=== PATIENT | female | born 1960 | race Caucasian/White ===

== ENCOUNTER 2019-04-07 13:59 | Emergency (ER) | payer MEDICAID ==
[~2019-04-07] VITALS: Ht 165.1 cm; Wt 124.7 kg
--- NOTE | 2019-04-07 14:30 | NUR ---
Dr. Baptiste at the bedside for MSE.
[2019-04-07] MEDS ORDERED: IBUPROFEN 800 MG TABLET ONE (14:39)
[2019-04-07] MEDS ORDERED: IBUPROFEN 800 MG TABLET PO ONE (14:45)
--- NOTE | 2019-04-07 16:04 | NUR ---
Patient discharged to home in stable conditon. Written and verbal after care instructions given. Patient verbalizes understanding of instructions.
== END 2019-04-07 16:05 | disposition home or self-care (01) ==
LOC: ER 13:59
DX: M54.5 Low back pain (principal); M54.2 Cervicalgia; M17.11 Unilateral primary osteoarthritis, right knee; E11.9 Type 2 diabetes mellitus without complications
CPT/HCPCS: 72125; 72131